=== PATIENT | female | born 1990 | race Hispanic/Latino ===

== ENCOUNTER 2019-07-14 15:24 | Emergency (ER) | payer SELFPAY | END 2019-07-14 16:27 | disposition home or self-care (01) | LOC: EDH 15:24 | DX: H66.92 Otitis media, unspecified, left ear (principal); H60.8X2 Other otitis externa, left ear; F41.9 Anxiety disorder, unspecified; F32.9 Major depressive disorder, single episode, unspecified; G43.909 Migraine, unspecified, not intractable, without status migrainosus ==